=== PATIENT | female | born 1980 | race Caucasian/White ===

== ENCOUNTER → 2024-03-04 00:12 | Outpatient (CLI) | payer OTHER, SELFPAY ==
--- NOTE | 2024-03-04 | ETT_ITS ---
APPROVED REPORT Exam: Exercise Treadmill Patient Location: Out-Patient Room/Bed: Stress Nurse: Verona Borges RN Ordering Provider:GEOVANY RIVERSMEGGAN, Contact Number: [phone] BMI: 35.77 Baseline Rhythm: Sinus Rhythm Indications: Other chest pain, Medical History Medical History: Depression, anxiety, atypical chest pain, cellulitis, fatigue, fluid retention, GERD , hemangioma, hypothyroidism, LE edema Cardiac Medications: Lansoprazole, cyclobenzaprine, lorazepam, cetirizine, albuterol sulfate, levothy roxine, furosemide, venlafaxine Allergies: Generic B100, dupixent, bupropion, omeprazole, pregabalin, sulfa drugs Cardiac Risk Factors: Family hx, smoker Previous Cardiac Procedures: None Pretest Chest Pain Characteristics: None Exercise History: Sedentary Physical Disabilities: None Lung Sounds: Clear to auscultation Heart Sounds: Regular Stress Test Details Test: Exercise stress testing was performed using a Hansel protocol. Rest Stress HR Resting HR Supine: 81 bpm Max Heart Rate (APMHR): 178 bpm Resting HR Standin bpm Target HR (85% APMHR): 151 bpm Max HR Achieved: 150 bpm % of APMHR: 84 Recovery HR: 103 bpm HR response to stress: Normal HR response to stress BP Resting BP Supine: 108/76 mmHg Resting BP Standin/72 mmHg Max BP: 150/90 mmHg Recovery BP: 130/84 mmHg BP response to stress: Normal blood pressure response to stress. ECG Resting ECG: Sinus Rhythm Ectopy: None Stress ECG: Sinus Tachycardia ST Change: No significant ST segment changes noted Arrhythmia: None Recovery ECG: Sinus Tachycardia Recovery ST Change: No significant ST segment changes noted Recovery Arrhythmia: None Clinical Reason for Termination: Fatigue, artifact Stress Symptoms: General Fatigue Exercise duration: 08 min29 sec Highest Stage Reached: Stage 2: 2.5 mph at 12% grade. Exercise capacity: 10.16 METs Angina Score: None Qureshi Treadmill Score: 6.1 Rate Pressure Product: [id number] Stress ECG Conclusion 1. Resting electrocardiogram is normal 2. Patient exercised on the Hansel protocol and completed a workload of 10.16 METS 3. Normal heart rate and blood pressure response to exercise. Peak heart rate achieved was 84% of ma ximal for age 4. There was no electrocardiographic evidence of myocardial ischemia 5. There were no significant dysrhythmias Qureshi Treadmill Score is 6.1 which is Low risk. Stress Test Summary STAGE Time (mins) Speed (mph) Grade (%) HR BP SpO2 SYMPTOMS METS Supine 81 108/76 98 Standing 92 98/72 1 3 1.7 10 128 122/64 95 4.5 2 6 2.5 12 133 140/68 7 3 9 3.4 14 150 10 1 min recovery 140 142/68 3 min recovery 115 150/90 6 min recovery 103 130/84 Significant artifiact noted with patient movement.
== END ==
PROVIDERS: PCP Family Medicine; Visit Provider Family Medicine
DX: R07.89 Other chest pain (principal)
CPT/HCPCS: 93017